=== PATIENT | male | born 1960 | race Caucasian/White ===

== ENCOUNTER 2021-11-04 08:32 | Day surgery (SDC) | payer MEDICAID ==
[~2021-11-04] VITALS: Ht 162.6 cm; Wt 74.8 kg
[2021-11-04] MEDS ORDERED: LIDOCAINE 2% 100 MG/5 ML UJET TP ONE (11:47)
[2021-11-04] MEDS ORDERED: fentaNYL citrate 0.05 MG/ML VIAL ONE (11:47)
[2021-11-04] MEDS ORDERED: MIDAZOLAM 5 MG/5 ML VIAL ONE (11:47)
== END 2021-11-04 12:40 | disposition home or self-care (01) ==
LOC: MDS 08:32 → MMU 08:32 → MDS 12:40
PROVIDERS: ATTEND Internal Medicine Gastroenterology
DX: K62.5 Hemorrhage of anus and rectum (principal); K63.5 Polyp of colon; E11.9 Type 2 diabetes mellitus without complications; E78.5 Hyperlipidemia, unspecified; Z90.49 Acquired absence of other specified parts of digestive tract; Z79.899 Other long term (current) drug therapy
CPT/HCPCS: 45385; 87426; J3010; J7030; J2250

== ENCOUNTER 2022-06-09 07:42 | Day surgery (SDC) | payer MEDICAID ==
[~2022-06-09] VITALS: Ht 170.2 cm; Wt 74.8 kg
[2022-06-09] MEDS ORDERED: LIDOCAINE 2% 100 MG/5 ML UJET TP ONE (09:36)
[2022-06-09] MEDS ORDERED: fentaNYL citrate 0.05 MG/ML VIAL ONE (09:36)
[2022-06-09] MEDS ORDERED: fentaNYL citrate 0.05 MG/ML VIAL IVP ONE (10:20)
== END 2022-06-09 10:52 | disposition home or self-care (01) ==
LOC: MDS 07:42 → MMU 07:43 → MDS 10:52
PROVIDERS: ATTEND Internal Medicine Gastroenterology
DX: K62.5 Hemorrhage of anus and rectum (principal); K64.8 Other hemorrhoids; I10 Essential (primary) hypertension; E78.5 Hyperlipidemia, unspecified; K21.9 Gastro-esophageal reflux disease without esophagitis; E11.9 Type 2 diabetes mellitus without complications; Z79.4 Long term (current) use of insulin; Z20.822 Contact with and (suspected) exposure to COVID-19
CPT/HCPCS: 45330; 45350; J3010